=== PATIENT | male | born 2000 | race Caucasian/White ===

== ENCOUNTER 2021-08-06 19:08 | Emergency (ER) | payer OTHER ==
[~2021-08-06] VITALS: Ht 180.3 cm; Wt 72.7 kg
[2021-08-06 20:31] VITALS: BP 126/64; PULSE 78; TEMP 97
== END 2021-08-06 20:33 | disposition home or self-care (01) ==
LOC: COL.ER 19:08
DX: S90.31XA Contusion of right foot, initial encounter (principal); V03.10XA Pedestrian on foot injured in collision with car, pick-up truck or van in traffic accident, initial encounter